=== PATIENT | female | born 1970 | race Caucasian/White ===

== ENCOUNTER 2019-04-30 03:08 | Inpatient (IN) ==
[2019-04-30] MEDS ORDERED: ONDANSETRON 4 MG/2 ML VIAL IV STA (04:14)
[2019-04-30] MEDS ORDERED: MORPHINE 4 MG/1 ML VIAL IV STA (04:14)
[2019-04-30] MEDS ORDERED: HYDROmorphone 2 MG/1 ML VIAL IV STA (05:01)
[2019-04-30] MEDS ORDERED: KETOROLAC 30 MG/1 ML VIAL IV STA (05:01)
[2019-04-30] MEDS ORDERED: metroNIDAZOLE INJ 500 MG in PREMIX 1 EACH IV STA (05:03)
[2019-04-30 06:12] LABS: INR 0.9; PT Patient Result 10.1 SECS (9.6-12.2)
[2019-04-30] MEDS ORDERED: ALBUTEROL/IPRATROPIUM 3 ML NEB RESP TX PRN (06:19)
[2019-04-30] MEDS ORDERED: ALBUTEROL 2.5 MG/3 ML NEB RESP TX PRN (06:19)
[2019-04-30] MEDS ORDERED: NICOTINE 21 MG/24 HR PATCH TRANSDERM PRN (06:19)
[2019-04-30] MEDS: IPRATROPIUM 500 MCG/2.5 ML NEB RESP TX SCH ×4 (07:28→19:57)
[2019-04-30] MEDS: SODIUM CHLORIDE 0.9% 1,000 ML IV SCH (07:29)
[2019-04-30] MEDS: PIPERACILLIN/TAZOBACTAM 3,375 MG in SODIUM CHLORIDE 0.9% 100 ML IV SCH ×2 (08:56→16:02)
[2019-04-30] MEDS: HYDROmorphone 2 MG/1 ML VIAL IV PRN ×2 (08:57→13:32)
[2019-04-30] MEDS: CHOLECALCIFEROL 1,000 UNIT TABLET PO SCH (09:00)
[2019-04-30] MEDS: amLODIPine 5 MG TABLET PO SCH (09:00)
[2019-04-30] MEDS: ONDANSETRON 4 MG/2 ML VIAL IV PRN ×4 (09:00→21:51)
[2019-04-30] MEDS: SERTRALINE 100 MG TABLET PO SCH (09:00)
[2019-04-30] MEDS: MULTIVITAMIN (CENTRUM) TABLET PO SCH (09:02)
[2019-04-30] MEDS: metroNIDAZOLE INJ 500 MG in PREMIX 1 EACH IV SCH ×2 (13:25→21:50)
[2019-05-01] MEDS: HYDROmorphone 2 MG/1 ML VIAL IV PRN ×5 (00:06→20:39)
[2019-05-01] MEDS: PIPERACILLIN/TAZOBACTAM 3,375 MG in SODIUM CHLORIDE 0.9% 100 ML IV SCH ×3 (00:08→15:58)
[2019-05-01] MEDS: PROMETHAZINE 25 MG/1 ML VIAL IM PRN ×2 (04:27→12:27)
[2019-05-01 04:58] LABS: Basophils # 0.1 10*3/uL (0.0-0.2); Basophils % 0.4 % (0.0-0.8); Eosinophils # 0.1 10*3/uL (0.0-0.87); Eosinophils % 0.4 % (0.00-10.9); Hematocrit 38.9 VOL% (35.7-47.0); Immature Granulocytes % 0.9 %; Immature Granulocytes Absolute 0.14 #; Lymphocytes # 2.7 10*3/uL (1.4-4.0); Lymphocytes % 17.6 % (21.3-54.2); Mean Corpuscular HGB Conc 33.4 GM/DL (32-36); Mean Corpuscular Volume 110.5 FL (87-102); Mean Platelet Volume 10.3 FL (9.6-12.0); Monocytes % 6.1 % (1.7-12.7); Neutrophils % 74.6 % (38.7-73.9); Platelet Count 237 T/CUMM (130-400); Red Blood Count 3.52 MC/CUMM (3.8-5.5); Red Cell Distribution Width 14.1 % (9.3-17.3); White Blood Count 15.3 T/CUMM (4-12)
[2019-05-01 05:25] LABS: Calcium 9.2 MG/DL (8.5-10.1); Osmolality,Calculated 280.4 MOS/KG (273-304)
[2019-05-01] MEDS: IPRATROPIUM 500 MCG/2.5 ML NEB RESP TX SCH ×4 (07:40→19:26)
[2019-05-01] MEDS: SODIUM CHLORIDE 0.9% 1,000 ML IV SCH ×2 (08:14→19:50)
[2019-05-01] MEDS: metroNIDAZOLE INJ 500 MG in PREMIX 1 EACH IV SCH ×3 (08:16→23:18)
[2019-05-01] MEDS: MULTIVITAMIN (CENTRUM) TABLET PO SCH (08:17)
[2019-05-01] MEDS: CHOLECALCIFEROL 1,000 UNIT TABLET PO SCH (08:17)
[2019-05-01] MEDS: SERTRALINE 100 MG TABLET PO SCH (08:17)
[2019-05-01] MEDS: amLODIPine 5 MG TABLET PO SCH (08:17)
[2019-05-01] MEDS: ONDANSETRON 4 MG/2 ML VIAL IV PRN (20:36)
[2019-05-02] MEDS: ACETAMINOPHEN 325 MG TABLET PO PRN ×2 (00:07→12:04)
[2019-05-02] MEDS: PIPERACILLIN/TAZOBACTAM 3,375 MG in SODIUM CHLORIDE 0.9% 100 ML IV SCH ×3 (01:34→18:24)
[2019-05-02 05:00] LABS: Basophils # 0.1 10*3/uL (0.0-0.2); Basophils % 0.5 % (0.0-0.8); Eosinophils # 0.1 10*3/uL (0.0-0.87); Hematocrit 34.6 VOL% (35.7-47.0); Hemoglobin 11.6 GM/DL (12.0-16.0); Immature Granulocytes % 0.6 %; Immature Granulocytes Absolute 0.06 #; Lymphocytes # 2.2 10*3/uL (1.4-4.0); Mean Corpuscular HGB Conc 33.5 GM/DL (32-36); Mean Corpuscular Volume 110.5 FL (87-102); Mean Platelet Volume 10.1 FL (9.6-12.0); Monocytes % 8.5 % (1.7-12.7); Neutrophils % 69.4 % (38.7-73.9); Platelet Count 238 T/CUMM (130-400); Red Blood Count 3.13 MC/CUMM (3.8-5.5); Red Cell Distribution Width 14.1 % (9.3-17.3); White Blood Count 10.8 T/CUMM (4-12)
[2019-05-02] MEDS: PROMETHAZINE 25 MG/1 ML VIAL IM PRN ×2 (05:09→14:57)
[2019-05-02] MEDS: HYDROmorphone 2 MG/1 ML VIAL IV PRN ×4 (05:20→19:21)
[2019-05-02 05:25] LABS: Hypochromasia 1+; Platelet Estimate Adequate
[2019-05-02 05:31] LABS: Calcium 9.1 MG/DL (8.5-10.1); Osmolality,Calculated 284.8 MOS/KG (273-304)
[2019-05-02] MEDS: IPRATROPIUM 500 MCG/2.5 ML NEB RESP TX SCH ×4 (07:05→21:00)
[2019-05-02] MEDS: SODIUM CHLORIDE 0.9% 1,000 ML IV SCH ×3 (07:33→22:05)
[2019-05-02] MEDS: metroNIDAZOLE INJ 500 MG in PREMIX 1 EACH IV SCH ×2 (08:48→17:19)
[2019-05-02] MEDS: amLODIPine 5 MG TABLET PO SCH (09:27)
[2019-05-02] MEDS: ONDANSETRON 4 MG/2 ML VIAL IV PRN (09:29)
[2019-05-02] MEDS: CHOLECALCIFEROL 1,000 UNIT TABLET PO SCH (17:19)
[2019-05-02] MEDS: MULTIVITAMIN (CENTRUM) TABLET PO SCH (17:19)
[2019-05-02] MEDS: SERTRALINE 100 MG TABLET PO SCH (17:19)
[2019-05-02] MEDS: BISACODYL 5 MG TABLET PO SCH (19:21)
[2019-05-02] MEDS ORDERED: POLYETHYLENE GLYCOL POWDER 255 GM BOTTLE PO ONE (19:30)
[2019-05-02] MEDS ORDERED: MAGNESIUM CITRATE 300 ML BOTTLE PO ONE (21:00)
[2019-05-03] MEDS: HYDROmorphone 2 MG/1 ML VIAL IV PRN ×7 (00:01→23:08)
[2019-05-03] MEDS: ONDANSETRON 4 MG/2 ML VIAL IV PRN ×4 (00:01→23:09)
[2019-05-03] MEDS: metroNIDAZOLE INJ 500 MG in PREMIX 1 EACH IV SCH ×2 (00:09→09:22)
[2019-05-03] MEDS: BISACODYL 5 MG TABLET PO SCH (01:45)
[2019-05-03] MEDS: PIPERACILLIN/TAZOBACTAM 3,375 MG in SODIUM CHLORIDE 0.9% 100 ML IV SCH ×2 (01:46→09:22)
[2019-05-03] MEDS ORDERED: LIDOCAINE 100 MG/5 ML SYRINGE ONE (05:01)
[2019-05-03] MEDS ORDERED: PROPOFOL 200 MG/20 ML VIAL IV ONE (05:01)
[2019-05-03] MEDS: IPRATROPIUM 500 MCG/2.5 ML NEB RESP TX SCH ×4 (07:10→20:07)
[2019-05-03] MEDS: amLODIPine 5 MG TABLET PO SCH ×2 (07:21→10:47)
[2019-05-03] MEDS ORDERED: MIDAZOLAM 2 MG/2 ML VIAL ONE ×2 (08:40→08:47)
[2019-05-03] MEDS: AMOXICILLIN/CLAV 875 MG TABLET PO SCH ×2 (10:31→21:37)
[2019-05-03] MEDS: SERTRALINE 100 MG TABLET PO SCH (10:31)
[2019-05-03] MEDS: CHOLECALCIFEROL 1,000 UNIT TABLET PO SCH (10:31)
[2019-05-03] MEDS: MULTIVITAMIN (CENTRUM) TABLET PO SCH (10:31)
[2019-05-03] MEDS: SODIUM CHLORIDE 0.9% 1,000 ML IV SCH ×3 (10:38→19:01)
[2019-05-03] MEDS: POTASSIUM CHLORIDE 20 MEQ TABLET PO PRN ×3 (18:57→23:09)
[2019-05-04] MEDS: POTASSIUM CHLORIDE 20 MEQ TABLET PO PRN ×2 (01:42→09:51)
[2019-05-04] MEDS: ONDANSETRON 4 MG/2 ML VIAL IV PRN ×2 (03:20→08:26)
[2019-05-04] MEDS: HYDROmorphone 2 MG/1 ML VIAL IV PRN ×3 (03:20→09:50)
[2019-05-04] MEDS: SODIUM CHLORIDE 0.9% 1,000 ML IV SCH ×2 (03:21→14:43)
[2019-05-04] MEDS: IPRATROPIUM 500 MCG/2.5 ML NEB RESP TX SCH (07:30)
[2019-05-04] MEDS: CHOLECALCIFEROL 1,000 UNIT TABLET PO SCH (09:51)
[2019-05-04] MEDS: AMOXICILLIN/CLAV 875 MG TABLET PO SCH (09:51)
[2019-05-04] MEDS: MULTIVITAMIN (CENTRUM) TABLET PO SCH (09:51)
[2019-05-04] MEDS: amLODIPine 5 MG TABLET PO SCH (09:51)
[2019-05-04] MEDS: SERTRALINE 100 MG TABLET PO SCH (09:51)
[2019-05-04 11:19] VITALS: BP 139/85
== END 2019-05-04 12:40 | disposition home or self-care (01) | DRG 249 ==
LOC: EDBD → EDUNIT# → N.ED 03:08 → SUATTDRO 05:01 → N.EDINP 05:01 → N.3E 05:59
PROVIDERS: ADMIT Internal Medicine; ATTEND Internal Medicine Geriatric Medicine